=== PATIENT | female | born 1985 | race Caucasian/White ===

== ENCOUNTER 2016-06-02 13:41 | Day surgery (SDC) | payer OTHER ==
[2016-06-02] MEDS ORDERED: MIDAZOLAM HCL 2 MG/2 ML SYR IV ONE (14:20)
[2016-06-02] MEDS ORDERED: LIDOCAINE HCL 1% 20 ML VIAL SUBCUT ONE (14:20)
[2016-06-02] MEDS ORDERED: MORPHINE SULFATE 10 MG/ML SYR IV PRN (14:23)
[2016-06-02] MEDS ORDERED: FENTANYL 100 MCG/2 ML VIAL IV PRN (14:23)
[2016-06-02] MEDS ORDERED: ACETAMINOPHEN 1,000 MG/100 ML VIAL IV SCH (14:30)
[2016-06-02] MEDS ORDERED: MIDAZOLAM HCL 2 MG/2 ML VIAL ONE ×2 (14:45→15:42)
[2016-06-02 14:46] VITALS: TEMP 98.6
[2016-06-02] MEDS ORDERED: ceFAZolin 1 GM/10 ML VIAL ONE (14:51)
[2016-06-02] MEDS ORDERED: LACTATED RINGERS 1,000 ML IV SCH ×2 (15:00)
[2016-06-02] MEDS ORDERED: BUPIVACAINE HCL/PF 0.5% 30 ML VIAL ONE (15:35)
[2016-06-02 16:44] VITALS: RESP 16
[2016-06-02 16:46] VITALS: O2SAT 95
[2016-06-02 17:18] VITALS: BP 114/69; PULSE 72
--- NOTE | 2016-06-03 07:08 | OPERATIVE REPORT ---
DATE OF SURGERY: 06/02/16 SURGEON: Gorge Mckenna DPM ANESTHESIA: Local with monitored anesthesia care. PREOPERATIVE DIAGNOSIS: Hallucis abductor valgus with bunion, right foot. POSTOPERATIVE DIAGNOSIS: Hallucis abductor valgus with bunion, right foot. PROCEDURE PERFORMED: [place] bunionectomy, right foot. HEMOSTASIS: Pneumatic ankle tourniquet. ESTIMATED BLOOD LOSS: Minimal. PROCEDURE IN DETAIL: Under mild sedation the patient was escorted into the operating room and placed on the operating table in a supine position. A pneumatic ankle tourniquet was then placed about the patients left ankle. Following IV sedation, local anesthesia was obtained about the right first ray utilizing 20 mL of a 1:1 mixture of 1% Lidocaine plain, 0.5% Marcaine plain. The left foot was then scrubbed, prepped and draped in the usual aseptic manner. An Esmarch bandage was utilized to exsanguinate the patients left foot , and a pneumatic ankle tourniquet was inflated. Attention was then directed to the dorsal medial aspect of the first metatarsal phalangeal joint where a 3-cm linear incision was made. The incision was deep and through the subcutaneous tissues with care being taken to retract all vital neuro and vascular structures and all bleeders were cauterized as necessary. At this time, a linear longitudinal capsulotomy was performed over the dorsal medial aspect of the first metatarsal phalangeal joint. The periosteal and capsular structures were reflected medially and laterally, thus exposing the head of the first metatarsal and the base of the proximal phalanx at the operative site. Next utilizing a sagittal bone saw, the dorsal and medial prominences were resected from the first metatarsal head and passed from the operative field. All rough edges were then smoothed with a rongeur and bone rasp. Dissection was then continued in the first interspace, via the original incision to the level of the fibular sesamoid. The fibular sesamoid was freed of its soft tissue attachments proximally, laterally and distally. The conjoint tendon of the adductor hallucis was then transected at its insertion at the base of the proximal phalanx. Attention was then directed to the medial aspect of the first metatarsal head for osteotomy cuts, the apex of the osteotomy pointed distally with arms pointing proximal dorsally and proximally plantarly. Upon completion of the osteotomy, the capital fragment was shifted laterally approximately 3 cm and impacted upon the first metatarsal shaft. It was held temporarily with a K- wire. Next, using standard AO principles and techniques, a 2.9 x 18 mm cortical bone screw was inserted across the osteotomy site with excellent compression noted. The K-wire was then removed, and the remaining medial bone shelf was removed with a sagittal saw. Attention was then directed to the base of the proximal phalanx, the right hallux, where a 2-mm medial base wedge osteotomy was created. The intermittent portion of bone was resected and passed from the operative field. The osteotomy was closed with the lateral cortex serving as a hinge for the osteotomy. A staple was inserted on each side of the osteotomy which was used to maintain fixation. Correction of the deformity was assessed and was noted to be well reduced. The wound was then flushed with copious amounts of sterile normal saline, the periosteal and capsular structures were reapproximated and coapted utilizing 2-0 Vicryl suture. Subcuticular tissues were reapproximated and coapted using 3-0 Vicryl suture and skin was reapproximated and coapted utilizing 4-0 nylon with horizontal mattress and simple interrupted suture technique. Upon completion of the procedure, the wound was dressed with Betadine soaked Adaptic and covered with a sterile compressive dressing consisting of 4x4s and João. The pneumatic ankle tourniquet was deflated and a prompt hyperemic response was noted to all digits of the right foot. An Mati wrap stockinette and postoperative shoe were then applied. The patient tolerated the procedure and anesthesia well. She was transferred to the recovery room with vital signs stable and vascular status intact to all toes of the right foot. Following a period of postoperative monitoring, the patient will be discharged home on the following written and oral postoperative instructions. 1. Keep dressings dry and intact. 2. Avoid excessive ambulation. 3. Ice and elevate right foot when at rest. 4. Wear surgical shoe at all times when ambulating. 5. Contact Dr. Mckenna for all postoperative followup care, and if any problems arise. 6. Prescriptions were written for Percocet for pain. VIKTORIA
--- NOTE | 2016-06-10 13:37 | PREOPERATIVE H&P ---
History of Present Illness (Leah Joseph Harris; 05/26/2016 9:01 AM) Patient words: Patient here for Pre-Op: [place] Bunionectomy of Right Foot. Consent form to be signed along with receiving pre/post op instructions and any pain medications that will be prescribed by Dr. Mckenna. The patient is a 30 year old female. Allergies (Leah Harris; 05/26/2016 9:01 AM) Effexor *ANTIDEPRESSANTS* personality change Family History (Leah Harris; 05/26/2016 9:01 AM) Alcohol Abuse Mother. age 36 Social History (Leah Harris; 05/26/2016 9:01 AM) Tobacco Use Former smoker. Quit age 21 Tobacco use Former smoker. Alcohol Use Moderate alcohol use. Medication History (Leah Harris; 05/26/2016 9:01 AM) Sertraline HCl (50MG Tablet, 1 (one) Oral 1 po daily, Taken starting 05/15/2015 ) Active. Cyclobenzaprine HCl (5MG Tablet, 1 (one) Tablet Oral 1 po tid prn muscle pain/ spasm, Taken starting 02/04/2016) Active. TraMADol HCl (50MG Tablet, 1 (one) Tablet Oral 1 po tid prn pain, Taken starting 02/04/2016) Active. Ibuprofen (200MG Tablet, 2 Oral 4-6 hours) Active. Vitamin B Complex (Oral) Active. Vitamin D3 (Oral) Specific dose unknown - Active. Calcium 600 (Oral) Specific dose unknown - Active. Medications Reconciled Vitals (Leah Harris; 05/26/2016 9:02 AM) 05/26/2016 9:02 AM Pre- Weight was reported by patient. Pain Level: 3/10 Resp.: 16 (Unlabored) Physical Exam (Gorge Mckenna DPM; 05/26/2016 9:28 AM) Musculoskeletal Lower Extremity Ankle/Foot: Foot - Evaluation of related systems reveals - well developed, well nourished and in no acute distress, alert and oriented x3 and neurovascularly intact bilaterally. Examination of the right foot reveals - no tenderness to palpation, no pain, no swelling, edema or erythema of surrounding tissue, normal foot and ankle movements and range of motion, no crepitus and no known fractures or deformities. Examination of the left foot reveals - no tenderness to palpation, no pain, no swelling, edema or erythema of surrounding tissue, normal foot and ankle movements and range of motion, no crepitus and no known fractures or deformities. Inspection and Palpation - Sensation is - normal, (R) and normal, (L). Pulses - 2+, (R) and 2+, (L). Examination reveals - Note: HAV with bunion R foot. 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 Reviewed instruction sheets. Rx pain meds. Answered questions. Scheduled POFU. Signed by Gorge Mckenna DPM (05/26/2016 9:30 AM) [place]
== END 2016-06-02 17:11 ==
LOC: SDS 13:41
PROVIDERS: ATTEND Podiatrist Foot & Ankle Surgery
DX: M21.611 Bunion of right foot (principal); M20.11 Hallux valgus (acquired), right foot
CPT/HCPCS: 84703; J0690; J2250